=== PATIENT | male | born 1985 | race Two or more races ===

== ENCOUNTER 2022-07-31 19:35 | Outpatient (REF) | payer OTHER, SELFPAY ==
--- NOTE | ~2022-07-31 | MR_ITS ---
EXAMINATION: MR BRAIN WITHOUT CONTRAST CLINICAL INFORMATION: Colloid cyst COMPARISON: None. TECHNIQUE: MRI of the brain was obtained using routine sequences without contrast. FINDINGS: Reported history of colloid cyst is not well visualized on current examination and can be correlated with prior outside hospital imaging. No acute infarct. No acute intracranial hemorrhage or extra-axial fluid collection. The ventricles and sulci are normal in size and configuration without significant volume loss or hydrocephalus. No mass lesion, mass effect, or herniation pattern. Normal intracranial arterial and dural venous sinus flow voids. 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 The orbits are grossly unremarkable. Pansinus mucosal disease, most pronounced and moderate within the ethmoid air cells. Retention cyst/polyp in the left sphenoid sinus. No mastoid effusion. Normal marrow signal. MR/MR head/brain wo con IMPRESSION: Reported history of colloid cyst is not well visualized on current examination and can be correlated with prior outside hospital imaging. 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 Pansinus mucosal disease, most pronounced and moderate within the ethmoid air cells. Retention cyst/polyp in the left sphenoid sinus.
== END 2022-07-31 19:36 | disposition home or self-care (01) ==
LOC: HO.MRI 19:35
PROVIDERS: Visit Provider Psychiatry & Neurology Neurology
DX: Q04.6 Congenital cerebral cysts (principal)
CPT/HCPCS: 70551